=== PATIENT | female | born 1930 | race Caucasian/White ===

== ENCOUNTER 2016-06-16 12:21 | Inpatient (IN) | payer MEDICARE, BC ==
[2016-06-16 12:27] VITALS: TEMP 97.7
[2016-06-16] MEDS ORDERED: SODIUM CHLORIDE 0.9% 1,000 ML IV ONE (12:48)
--- NOTE | 2016-06-16 12:51 | ED ---
General Adult HPI - General Chief complaint: Altered Mental Status Stated complaint: Altered Mental Status Time Seen by Provider: 06/16/16 12:43 Source: family, RN notes reviewed Mode of arrival: wheelchair Limitations: altered mental status - History of Present Illness Initial comments: Patient is a pleasant 86-year-old female presenting to the emergency department with change in mental status. Patient denies having any problems and states she feels fine. Patient denies any pain however when specifically asked does state she has a headache. Patient states that is mild at this time. Son states yesterday she was acting normal. Patient is no longer oriented and acting different. No reported trauma. - Related Data Home Medications Medication Instructions Recorded Confirmed Cholecalciferol [Vitamin D3] 2,000 unit PO DAILY 07/14/15 06/16/16 Levothyroxine Sodium [Synthroid] 75 mcg PO DAILY 07/14/15 06/16/16 Metoprolol Tartrate [Lopressor] 50 mg PO Q12HR 07/14/15 06/16/16 Famotidine [Pepcid] 20 mg PO DAILY 11/04/15 06/16/16 Sertraline [Zoloft] 50 mg PO DAILY 11/04/15 06/16/16 Cyanocobalamin (Vitamin B-12) 1,000 mcg PO DAILY 06/16/16 06/16/16 [Vitamin B-12] Fluticasone Nasal [place] [Flonase 1 spray EA NOSTRIL BID 06/16/16 06/16/16 Nasal [place]] Furosemide [Lasix] 20 mg PO DAILY 06/16/16 06/16/16 Pravastatin Sodium [Pravachol] 20 mg PO HS 06/16/16 06/16/16 hydrALAZINE HCL [Apresoline] 10 mg PO TID 06/16/16 06/16/16 Allergies Allergy/AdvReac Type Severity Reaction Status Date / Time No Known Allergies Allergy Verified 06/16/16 13:51 Review of Systems ROS Statement: Those systems with pertinent positive or pertinent negative responses have been documented in the HPI. ROS Other: All systems not noted in ROS Statement are negative. Constitutional: Denies: fever Eyes: Denies: eye pain ENT: Denies: ear pain Respiratory: Denies: cough Cardiovascular: Denies: chest pain Endocrine: Denies: fatigue Gastrointestinal: Denies: abdominal pain Genitourinary: Denies: dysuria Musculoskeletal: Denies: back pain Skin: Denies: rash Neurological: Reports: headache. Denies: weakness Past Medical History Past Medical History: Asthma, Cancer, Diabetes Mellitus, Eye Disorder, GERD/ Reflux, Hypertension, Thyroid Disorder Additional Past Medical History / Comment(s): Pt was recently admitted to [facility] on 11/04/15 with multiple nodular bilateral lung lesions. She was to follow up with chiller technician on 11/09/15 but is reconsidering this. 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 Past Anesthesia/Blood Transfusion Reactions: No Reported Reaction Past Psychological History: No Psychological Hx Reported Additional Psychological History / Comment(s): Pt resides alone. She is a [employer]. She has a walker, cane, scooter and motorized wheelchair. She has Home Health care out of [place], a nurse, physician and physical therapist. She no longer drives. Her [facility] Smoking Status: Never smoker Past Alcohol Use History: None Reported Past Drug Use History: None Reported - Past Family History Father Family Medical History: Liver Disease, Pneumonia Additional Family Medical History / Comment(s): Father had cirrhosis of the liver. He was a heavy drinker. He at the age of 66yrs from pneumonia. Mother Family Medical History: Cancer Additional Family Medical History / Comment(s): Mother had lung cancer and of this at the age of 53yrs. She was a nonsmoker. General Exam Limitations: altered mental status General appearance: alert, in no apparent distress Head exam: Present: atraumatic Eye exam: Present: normal appearance, PERRL, EOMI. Absent: nystagmus ENT exam: Present: normal oropharynx Neck exam: Present: normal inspection. Absent: tenderness, meningismus Respiratory exam: Present: normal lung sounds bilaterally Cardiovascular Exam: Present: regular rate, normal rhythm GI/Abdominal exam: Present: soft. Absent: tenderness Extremities exam: Present: normal inspection, full ROM. Absent: tenderness Neurological exam: Present: alert, altered, CN II-XII intact. Absent: motor sensory deficit Expanded Patient oriented to: Present: person. Absent: place, time Speech: Present: fluid speech Motor strength exam: RUE: 5, LUE: 5, RLE: 5, LLE: 5 Psychiatric exam: Present: normal affect, normal mood Skin exam: Absent: rash Course Vital Signs 06/16/16 06/16/16 06/16/16 12:23 13:00 13:30 Temperature 97.7 F Pulse Rate 54 L 58 L 60 Respiratory 20 18 18 Rate Blood Pressure 227/94 220/92 203/85 O2 Sat by Pulse 98 98 98 Oximetry - Reevaluation(s) Reevaluation #1: 06/16/16 13:49 Patient reexamined and unchanged. Long discussion had with family regarding results and prognosis. Family is having discussion at this time whether or not to make patient Comfort Care. Patient does have known lung lesions that she has previously refused further evaluation for. Patient refused biopsy. 06/16/16 14:15 Further discussion among multiple family members have decided to make patient comfort care only. They are aware no treatment will be provided. No CPR. No intubation. No life support. They are aware the patient will likely . 06/16/16 14:16 Ice was discussed with Dr. Dutton, who will admit for hospital call. EKG Findings - EKG Comments: EKG Findings:: Normal sinus rhythm 63. [place] 180. QRS 128. QT 466. QTc 476. Left axis. Right bundle branch block. No acute ST change. Medical Decision Making - Lab Data Result diagrams: 06/16/16 13:05 06/16/16 13:05 Lab Results 06/16/16 06/16/16 06/16/16 Range/Units 13:05 13:05 13:05 WBC 7.6 (3.8-10.6) k/uL RBC 4.57 (3.80-5.40) m/uL Hgb 14.3 (11.4-16.0) gm/dL Hct 43.8 (34.0-46.0) % MCV 95.8 (80.0-100.0) fL MCH 31.3 (25.0-35.0) pg MCHC 32.7 (31.0-37.0) g/dL RDW 13.5 (11.5-15.5) % Plt Count 219 (150-450) k/uL Neutrophils % 63 % Lymphocytes % 25 % Monocytes % 7 % Eosinophils % 2 % Basophils % 0 % Neutrophils # 4.8 (1.3-7.7) k/uL Lymphocytes # 1.9 (1.0-4.8) k/uL Monocytes # 0.6 (0-1.0) k/uL Eosinophils # 0.2 (0-0.7) k/uL Basophils # 0.0 (0-0.2) k/uL PT (9.0-12.0) sec INR (<1.1) APTT (22.0-30.0) sec Sodium 140 (137-145) mmol/L Potassium 4.7 (3.5-5.1) mmol/L Chloride 105 (98-107) mmol/L Carbon Dioxide 25 (22-30) mmol/L Anion Gap 10 mmol/L BUN 41 H (7-17) mg/dL Creatinine 0.98 (0.52-1.04) mg/dL Est GFR (MDRD) Af Amer >60 (>60 ml/min/1.73 sqM) Est GFR (MDRD) Non-Af 54 (>60 ml/min/1.73 sqM) Glucose 122 H (74-99) mg/dL Calcium 9.6 (8.4-10.2) mg/dL Total Bilirubin 0.5 (0.2-1.3) mg/dL AST 24 (14-36) U/L ALT 29 (9-52) U/L Alkaline Phosphatase 51 (38-126) U/L Total Creatine Kinase 26 L (30-135) U/L Total Protein 7.4 (6.3-8.2) g/dL Albumin 4.0 (3.5-5.0) g/dL Urine Color Urine Appearance (Clear) Urine pH (5.0-8.0) Ur Specific [place] (1.001-1.035) Urine Protein (Negative) Urine Glucose (UA) (Negative) Urine Ketones (Negative) Urine Blood (Negative) Urine Nitrite (Negative) Urine Bilirubin (Negative) Urine Urobilinogen (<2.0) mg/dL Ur Leukocyte Esterase (Negative) Urine Opiates Screen (NotDetected) Ur Oxycodone Screen (NotDetected) Urine Methadone Screen (NotDetected) Ur Propoxyphene Screen (NotDetected) Ur Barbiturates Screen (NotDetected) U Tricyclic Antidepress (NotDetected) Ur Phencyclidine Scrn (NotDetected) Ur Amphetamines Screen (NotDetected) U Methamphetamines Scrn (NotDetected) U Benzodiazepines Scrn (NotDetected) Urine Cocaine Screen (NotDetected) U Marijuana (THC) Screen (NotDetected) 06/16/16 06/16/16 06/16/16 Range/Units 13:05 13:20 13:20 WBC (3.8-10.6) k/uL RBC (3.80-5.40) m/uL Hgb (11.4-16.0) gm/dL Hct (34.0-46.0) % MCV (80.0-100.0) fL MCH (25.0-35.0) pg MCHC (31.0-37.0) g/dL RDW (11.5-15.5) % Plt Count (150-450) k/uL Neutrophils % % Lymphocytes % % Monocytes % % Eosinophils % % Basophils % % Neutrophils # (1.3-7.7) k/uL Lymphocytes # (1.0-4.8) k/uL Monocytes # (0-1.0) k/uL Eosinophils # (0-0.7) k/uL Basophils # (0-0.2) k/uL PT 10.1 (9.0-12.0) sec INR 1.0 (<1.1) APTT 23.2 (22.0-30.0) sec Sodium (137-145) mmol/L Potassium (3.5-5.1) mmol/L Chloride (98-107) mmol/L Carbon Dioxide (22-30) mmol/L Anion Gap mmol/L BUN (7-17) mg/dL Creatinine (0.52-1.04) mg/dL Est GFR (MDRD) Af Amer (>60 ml/min/1.73 sqM) Est GFR (MDRD) Non-Af (>60 ml/min/1.73 sqM) Glucose (74-99) mg/dL Calcium (8.4-10.2) mg/dL Total Bilirubin (0.2-1.3) mg/dL AST (14-36) U/L ALT (9-52) U/L Alkaline Phosphatase (38-126) U/L Total Creatine Kinase (30-135) U/L Total Protein (6.3-8.2) g/dL Albumin (3.5-5.0) g/dL Urine Color Light Yellow Urine Appearance Clear (Clear) Urine pH 5.5 (5.0-8.0) Ur Specific [place] 1.010 (1.001-1.035) Urine Protein Negative (Negative) Urine Glucose (UA) Negative (Negative) Urine Ketones Negative (Negative) Urine Blood Negative (Negative) Urine Nitrite Negative (Negative) Urine Bilirubin Negative (Negative) Urine Urobilinogen <2.0 (<2.0) mg/dL Ur Leukocyte Esterase Negative (Negative) Urine Opiates Screen Not Detected (NotDetected) Ur Oxycodone Screen Not Detected (NotDetected) Urine Methadone Screen Not Detected (NotDetected) Ur Propoxyphene Screen Not Detected (NotDetected) Ur Barbiturates Screen Not Detected (NotDetected) U Tricyclic Antidepress Not Detected (NotDetected) Ur Phencyclidine Scrn Not Detected (NotDetected) Ur Amphetamines Screen Not Detected (NotDetected) U Methamphetamines Scrn Not Detected (NotDetected) U Benzodiazepines Scrn Not Detected (NotDetected) Urine Cocaine Screen Not Detected (NotDetected) U Marijuana (THC) Screen Not Detected (NotDetected) - Radiology Data Radiology results: image reviewed (Computed tomography scan of the brain shows left parenchymal hematoma up to 4.6 cm. Mild edema. 6 mm midline shift. Trace adjacent subdural.) Disposition Clinical Impression: Intraparenchymal hemorrhage of brain Disposition: ADMITTED IP TO THIS HOSP Condition: Critical Time of Disposition: 14:16
[2016-06-16 13:29] LABS: Basophils % (A) 0 %; CH 31.6; CHCM 33.1; Eosinophils # (A) 0.2 k/uL (0-0.7); Eosinophils % (A) 2 %; HCT 43.8 % (34.0-46.0); HDW 2.32; HGB 14.3 gm/dL (11.4-16.0); Luc % (Auto) 3; Lymphocytes # (A) 1.9 k/uL (1.0-4.8); Lymphocytes % (A) 25 %; MCH 31.3 pg (25.0-35.0); MCHC 32.7 g/dL (31.0-37.0); MCV 95.8 fL (80.0-100.0); Mean Platelet Volume 7.2; Monocytes # (A) 0.6 k/uL (0-1.0); Monocytes % (A) 7 %; Neutrophils # (A) 4.8 k/uL (1.3-7.7); Neutrophils % (A) 63 %; RBC 4.57 m/uL (3.80-5.40); RDW 13.5 % (11.5-15.5); WBC 7.6 k/uL (3.8-10.6); WBC (Perox) 7.73
--- NOTE | 2016-06-16 13:30 | CT ---
EXAMINATION TYPE: CT brain wo con DATE OF EXAM: 06/16/2016 1:22 PM COMPARISON: 07/14/2015 HISTORY: 86-year-old female altered mental status, confusion TECHNIQUE: Examination was done in axial plane without intravenous contrast. Coronal and sagittal r econstructions performed. CT DLP: 60.30 mGycm Automated exposure control for dose reduction was used. FINDINGS: There is evidence of an intraparenchymal hematoma along the left lateral and posterior temporal lobe. Hematoma measures 2.6 cm wide by 4.6 cm AP by 2.5 cm craniocaudal. There is surrounding vasogenic ed devorah and trace left-sided subdural hematoma. Mass effect with some medial displacement of the uncus but no karthik uncal herniation. However, there is 6 mm of rightward midline shift noted. No effacement of the lateral ventricles or hydrocephalus. No acute ischemic changes. Mild generalized cerebral atrophy. No effacement of basal subarachnoid cis terns. No calvarial fracture. Paranasal sinuses and mastoid air cells appear well pneumatized. Orbits and gl obes are intact. IMPRESSION: 1. Acute intraparenchymal hematoma measuring up to 4.6 cm with mild surrounding vasogenic edema and m ass effect causing 6 mm of rightward midline shift. No hydrocephalus or karthik herniation. 2. Trace adjacent subdural hematoma along the left lateral convexity. Findings called to Dr. Acevedo in the ER at 1:26 PM.
[2016-06-16] MEDS ORDERED: ENALAPRILAT 1.25 MG/ML 1 ML VIAL IVP STA (13:33)
[2016-06-16 13:38] LABS: Partial Thromboplastin Time 23.2 sec (22.0-30.0); Prothrombin Time 10.1 sec (9.0-12.0)
[2016-06-16 13:41] LABS: ALT 29 U/L (9-52); AST 24 U/L (14-36); Alkaline Phosphatase 51 U/L (38-126); Anion Gap 10 mmol/L; Blood Urea Nitrogen 41 mg/dL (7-17); Calcium 9.6 mg/dL (8.4-10.2); Carbon Dioxide 25 mmol/L (22-30); Chloride 105 mmol/L (98-107); Glucose 122 mg/dL (74-99); Non-African American GFR(MDRD) 54 (>60 ml/min/1.73 sqM); Potassium 4.7 mmol/L (3.5-5.1); Sodium 140 mmol/L (137-145); Total Bilirubin 0.5 mg/dL (0.2-1.3); Total Protein 7.4 g/dL (6.3-8.2)
[2016-06-16 13:53] LABS: Appearance,Urine Clear (Clear); Bilirubin,Urine Negative (Negative); Glucose,Urine (UA) Negative (Negative); Ketones,Urine Negative (Negative); Leukocyte Esterase,Urine Negative (Negative); Nitrite,Urine Negative (Negative); PH, Urine 5.5 (5.0-8.0); Protein,Urine Negative (Negative); UA Billing (MACRO vs. MICRO) CHEM; Urobilinogen,Urine <2.0 mg/dL (<2.0)
[2016-06-16 14:04] LABS: Creatine Kinase 26 U/L (30-135)
[2016-06-16] MEDS ORDERED: MORPHINE SULFATE 4 MG/ML SYRINGE IV STA (14:11)
--- NOTE | 2016-06-16 14:16 | XR ---
EXAMINATION TYPE: XR chest 1V DATE OF EXAM: 06/16/2016 2:06 PM COMPARISON: Prior chest x-ray 09 November 2015 HISTORY: Altered mental status TECHNIQUE: Single frontal view of the chest is obtained. FINDINGS: There is no focal air space opacity, pleural effusion, or pneumothorax seen. The cardiac silhouette size is stable. The patient is rotated. There are overlying cardiac leads. Interstitium appears somewhat prominently. The osseous structures are intact. IMPRESSION: Similar findings to prior exam. Rotated exam. Cardiomegaly. There is underlying intersti tial lung disease, correlate to exclude pulmonary venous hypertension and interstitial edema, follow- up is recommended.
[2016-06-16 14:17] LABS: Creatine Kinase MB 1.2 ng/mL (0.0-2.4); Troponin I <0.012 ng/mL (0.000-0.034)
[2016-06-16] MEDS ORDERED: MORPHINE SULFATE 2 MG/ML SYRINGE IV PRN (14:17)
[2016-06-16] MEDS ORDERED: MORPHINE SULFATE 4 MG/ML SYRINGE IV PRN (14:17)
[2016-06-16] MEDS ORDERED: ONDANSETRON 4 MG/2 ML VIAL IVP PRN (14:17)
[2016-06-16] MEDS ORDERED: METOCLOPRAMIDE 5 MG/ML 2 ML VIAL IVP PRN (14:17)
[2016-06-16] MEDS ORDERED: LORazepam 2 MG/ML SYRINGE IV PRN (14:17)
[2016-06-16] MEDS ORDERED: LORazepam 2 MG/ML SYRINGE IV STA (15:28)
[2016-06-16] MEDS ORDERED: PHENYTOIN SODIUM INJ 1,000 MG in SODIUM CHLORIDE 0.9% 100 ML IVPB STA (15:32)
[2016-06-16 16:19] VITALS: BP 120/56; PULSE 62; RESP 16
--- NOTE | 2016-06-16 20:15 | HP ---
DATE OF ADMISSION: Please consider this history and physical and discharge summary also. CHIEF COMPLAINT: Unresponsiveness and change in mental status. HISTORY OF PRESENT ILLNESS: This 86-year-old woman with a past medical history of diabetes mellitus, history of gastroesophageal reflux disease, hypertension, hypothyroidism, history of asthma, history of appendectomy, history of bowel resection, being followed by a primary physician in the outpatient setting is noted to have change in mental status by the family today. The patient was taken to [facility] and CT scan showed acute intraparenchymal hematoma measuring up to 4.6 cm with surrounding edema and mass effect 6 mm from the rightward midline shift and trace suggestion subdural hematoma is also noted. The patient will be closely monitored. The patient is unable to give a coherent history. Patient has also received Ativan. Patient also had seizures. Most of the history was taken from my discussion with staff and reviewed the chart. The patient is currently a NO CODE. PAST MEDICAL HISTORY: History of diabetes mellitus, history of gastroesophageal reflux disease, hypertension, hypothyroidism, history of asthma, history of appendectomy, history of bowel resection. Medications prior to admission include: 1. Flonase nasal spray, 1 spray b.i.d. 2. Apresoline 10 mg t.i.d. 3. Pravachol 20 mg q.h.s. 4. Vitamin B12 1000 mcg p.o. daily. 5. Vitamin D3 2000 daily. 6. Zoloft 50 mg daily. 7. Lopressor 50 mg b.i.d. 8. Synthroid 75 mcg p.o. daily. 9. Lasix 20 mg p.o. daily. 10. Pepcid 20 mg p.o. daily. ALLERGIES: None. Family history, social history, review of systems could not be taken because of the patient's change in mental status. No history of smoking per chart. PHYSICAL EXAMINATION: The patient is minimally responsive. Pulse is 62, blood pressure 120/50, respirations 16, temperature is 98 degrees on 2 liters. HEENT: Conjunctivae normal, oral mucosa moist. Deviation of eyes to the right present. NECK: No jugular venous distention. No carotid bruit. No thyroid enlargement. CARDIOVASCULAR: S1, S2. No S3, no S4. RESPIRATORY: Breath sounds diminished. A few scattered rhonchi and crackles. ABDOMEN: Soft, nontender. No mass palpable. LEGS: No edema. No swelling. NERVOUS SYSTEM: Higher functions as mentioned earlier. Otherwise unable to cooperate with exam. Diffusely weak. SKIN: No ulcer, rash or bleeding. LYMPHATIC: No lymphadenopathy in the neck, axillae or groin. JOINTS: No active deforming arthropathy. LABS: CBC within normal limits. Glucose 122. Drug screen is negative. UA is negative. ASSESSMENT: 1. Change in mental status with acute intraparenchymal intracerebral hemorrhage of 4.6 cm with surrounding as well as mass effect on the left lateral and posterior temporal lobe. 2. Change in mental status, metabolic encephalopathy secondary to metabolic toxic and secondary to intracerebral hemorrhage. 3. Acute seizure disorder secondary intracerebral hemorrhage. 4. Diabetes mellitus type 2. 5. History of asthma. 6. History of gastroesophageal reflux disease. 7. Hypertension, essential. 8. Hypothyroidism. 9. History of recurrent urinary tract infections. 10. History of osteoporosis. 11. History of vancomycin-resistant enterococcus. 12. History of bowel resection. 13. History of cholecystectomy. 14. NO CODE, NO CPR, NO VENT. 15. Hospice care and comfort measures. RECOMMENDATIONS AND DISCUSSION: In this 86-year-old woman who presented with multiple complex medical issues, significant mass effect and seizure disorder secondary to intracerebral hemorrhage. I had a detailed discussion with the family. The overall prognosis remains extremely guarded because of advanced age of the patient and multiple complex medical issues and significant hematoma. The family is opting for comfort measures and hospice will be consulted and patient will be discharged to inpatient hospice with comfort measures. See orders for further details. Prognosis as mentioned earlier is extremely guarded and copy of dictation forwarded to [facility] who is the primary physician. IVAN
== END 2016-06-16 18:16 | disposition hospice, inpatient (51) | DRG 64 ==
LOC: EC 12:21 → 5ONC 14:21
PROVIDERS: ADMIT Hospitalist; ATTEND Hospitalist
DX: I61.9 Nontraumatic intracerebral hemorrhage, unspecified (principal); G93.41 Metabolic encephalopathy; E11.9 Type 2 diabetes mellitus without complications; G40.909 Epilepsy, unspecified, not intractable, without status epilepticus; E03.9 Hypothyroidism, unspecified; I10 Essential (primary) hypertension; J45.909 Unspecified asthma, uncomplicated; K21.9 Gastro-esophageal reflux disease without esophagitis; M81.0 Age-related osteoporosis without current pathological fracture; I83.90 Asymptomatic varicose veins of unspecified lower extremity; R22.0 Localized swelling, mass and lump, head; Z51.5 Encounter for palliative care; Z66 Do not resuscitate; Z79.899 Other long term (current) drug therapy; Z85.828 Personal history of other malignant neoplasm of skin; Z85.048 Personal history of other malignant neoplasm of rectum, rectosigmoid junction, and anus
CPT/HCPCS: 36415; 70450; 71010; 80053; 80306; 81003; 82550; 82553; 84484; 85025; 85610; 85730; 93005; 96365; 96375; 99285

== ENCOUNTER 2016-06-16 18:19 | Inpatient (IN) | payer MEDICAID ==
[2016-06-16] MEDS ORDERED: MORPHINE SULFATE 2 MG/ML SYRINGE IVP PRN (18:41)
[2016-06-16] MEDS ORDERED: MORPHINE SULFATE 4 MG/ML SYRINGE IVP PRN (18:41)
[2016-06-16] MEDS ORDERED: MORPHINE SULFATE 10 MG/ML SYRINGE IVP PRN (18:41)
[2016-06-16] MEDS ORDERED: ATROPINE OPHTH SOLN 1% 5ML BTL SUBLINGUAL PRN (18:43)
[2016-06-16] MEDS ORDERED: BISACODYL 10 MG SUPP RECTAL PRN (18:46)
[2016-06-16] MEDS ORDERED: ONDANSETRON 4 MG/2 ML VIAL IVP PRN (18:46)
[2016-06-16] MEDS: MORPHINE SULFATE (100 MG/2 ML) 100 MG in SODIUM CHLORIDE 0.9% 100 ML IV SCH (21:37)
[2016-06-16] MEDS: LORazepam 2 MG/ML SYRINGE IV PRN (21:41)
[2016-06-17] MEDS: ACETAMINOPHEN SUPPOSITORY 650 MG SUPP RECTAL PRN ×2 (00:47→19:28)
[2016-06-17] MEDS: LORazepam 2 MG/ML SYRINGE IV PRN ×5 (00:53→21:40)
[2016-06-17 08:36] VITALS: TEMP 99.8
[2016-06-17] MEDS: MORPHINE SULFATE (100 MG/2 ML) 100 MG in SODIUM CHLORIDE 0.9% 100 ML IV SCH (13:22)
--- NOTE | 2016-06-17 18:38 | PN ---
DATE OF SERVICE: 06/17/2016 This 86-year-old woman was admitted with acute intracerebral hemorrhages, continue to be unresponsive. Patient is on morphine. Patient is on comfort measures. On exam, pulse is 111. The patient is nonlabored breathing. CARDIOVASCULAR SYSTEM: S1, S2. RESPIRATIONS: A few scattered rhonchi. ABDOMEN: Soft. NERVOUS SYSTEM: Unresponsive. LABS: Not available. ASSESSMENT: 1. Acute intraparenchymal intracerebral bleeding on the left lateral and posterior temporal lobe with 4.6 cm with surrounding edema as well as mass effect with change in mental status. 2. Metabolic encephalopathy, change in mental status secondary to metabolic toxic encephalopathy secondary to intracerebral hemorrhage. 3. 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 4. Diabetes mellitus type 2. 5. History of asthma. 6. History of gastroesophageal reflux disease. 7. Hypertension, essential. 8. Hypothyroidism. 9. History of recurrent urinary tract infections. 10. History of osteoporosis. 11. History vancomycin-resistant enterococcus. 12. History of bowel resection. 13. History of cholecystectomy. 14. NO CODE, NO CARDIOPULMONARY RESUSCITATION, NO VENT. 15. COMFORT MEASURES AND HOSPICE. RECOMMENDATIONS AND DISCUSSION: I recommend to continue the current medications, continue monitoring and symptomatic treatment. Continue with morphine drip. Continue with p.r.n. Ativan and the rest of the medications. Prognosis guarded. Discussed with family at length. Further recommendations to follow.
[2016-06-18] MEDS: LORazepam 2 MG/ML SYRINGE IV PRN ×5 (02:43→17:18)
[2016-06-18] MEDS: MORPHINE SULFATE (100 MG/2 ML) 100 MG in SODIUM CHLORIDE 0.9% 100 ML IV SCH ×2 (04:17→14:27)
[2016-06-18] MEDS ORDERED: SCOPOLAMINE 1.5MG/72HR PATCH TRANSDERM SCH (11:00)
--- NOTE | 2016-06-18 17:22 | PN ---
DATE OF SERVICE: 06/18/2016 This 86-year-old woman who was admitted with acute intracerebral hemorrhage is on hospice care. The patient is being closely monitored. The patient is on morphine drip. No chest pain. No palpitation. On exam, the patient has non-labored shallow breathing. Temperature is 99.8. CARDIOVASCULAR SYSTEM: S1, S2 muffled. RESPIRATORY SYSTEM: A few rhonchi. ABDOMEN: Soft. NERVOUS SYSTEM: Unresponsive. LABS: Not available. ASSESSMENT: 1. Acute intraparenchymal intracerebral bleeding of the left lateral and posterior temporal lobe, 4.6 cm, with surrounding edema as well as mass effect with metabolic encephalopathy and change in mental status secondary to metabolic toxic encephalopathy secondary to intracerebral hemorrhage. 2. 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 3. Diabetes mellitus, type 2. 4. History of asthma. 5. History of gastroesophageal reflux disease. 6. Hypertension, essential. 7. Hypothyroidism. 8. History of recurrent urinary tract infection. 9. History of osteoporosis. 10. History of vancomycin-resistant enterococcus. 11. History of bowel resection. 12. History of cholecystectomy. 13. NO CODE, NO CPR, NO VENT 14. COMFORT MEASURES and HOSPICE. RECOMMENDATIONS AND DISCUSSION: I recommend to continue with the current medications, continue with the monitoring, symptomatic treatment. Continue with morphine drip; titrate to comfort with no upper limit. Discussed with the family. Prognosis guarded. Further recommendations to follow. Yuly Fofana.
--- NOTE | 2016-06-18 22:02 | DS ---
DATE OF ADMISSION: 06/16/2016 DATE OF EXPIRATION: 06/18/2016 PRIMARY CAUSE OF : 1. Acute intracerebral, intraparenchymal bleeding in the lateral and posterior temporal lobes, 4.6 cm surrounding edema as well as mass effect. 2. Change in mental status, metabolic encephalopathy as well as secondary to metabolic toxic encephalopathy. 3. Acute history of seizure disorder secondary to intracerebral hemorrhage. 4. Diabetes mellitus type 2. 5. History of asthma. 6. Gastroesophageal reflux disease. 7. Hypertension, essential. 8. Hypothyroidism. 9. History of recurrent urinary tract infection. 10. History of osteoporosis. 11. History of vancomycin-resistant Enterococcus. 12. History of bowel resection. 13. History of cholecystectomy. 14. NO CODE, NO CARDIOPULMONARY RESUSCITATION. INITIATION OF COMFORT MEASURES AND HOSPICE. HISTORY OF PRESENT ILLNESS: This 86-year-old woman with a past medical history of multiple medical problems as mentioned earlier being followed with significant issues, admitted with features of acute intracerebral hemorrhage as well as change in mental status. Patient was treated symptomatically initially; however, a discussion was held with the family because of the extremely grave nature of the prognosis. The patient transitioned to hospice care and the patient subsequently succumbed. Comfort measures were continued and patient succumbed to above-mentioned medical illnesses. Please refer to the multiple history and physical notes and progress notes for further information. The prognosis was guarded throughout the hospital stay.
== END 2016-06-18 17:40 | disposition expired | DRG 64 ==
LOC: 5ONC 18:19
PROVIDERS: ADMIT Hospitalist; ATTEND Hospitalist
DX: I61.9 Nontraumatic intracerebral hemorrhage, unspecified (principal); G92 Toxic encephalopathy; E11.9 Type 2 diabetes mellitus without complications; G40.909 Epilepsy, unspecified, not intractable, without status epilepticus; E03.9 Hypothyroidism, unspecified; I10 Essential (primary) hypertension; J45.909 Unspecified asthma, uncomplicated; K21.9 Gastro-esophageal reflux disease without esophagitis; M81.0 Age-related osteoporosis without current pathological fracture; Z51.5 Encounter for palliative care; Z87.440 Personal history of urinary (tract) infections